=== PATIENT | male | born 1970 | race Caucasian/White ===

== ENCOUNTER → 2021-03-26 04:35 | Outpatient (CLI) | payer BC, SELFPAY ==
[2021-03-26 18:47] LABS: SARS-CoV-2 RNA PCR Negative
== END ==
PROVIDERS: Visit Provider Internal Medicine Gastroenterology
DX: Z01.812 Encounter for preprocedural laboratory examination (principal); Z20.822 Contact with and (suspected) exposure to COVID-19
CPT/HCPCS: C9803; U0003; U0005

== ENCOUNTER 2021-03-29 01:04 | Day surgery (SDC) | payer BC, SELFPAY ==
[2021-03-22 11:22] VITALS: BMI 32.0
[2021-03-29 10:15] VITALS: BP 120/95; PULSE 84; RESP 18; TEMP 35.8; O2SAT 99
[2021-03-29] MEDS: LACTATED RINGERS 1,000 ML 150 ML IV CONT (10:17)
--- NOTE | 2021-03-29 10:28 | WPDHPUPDATE1 ---
History and Physical Update Update Date/Time: 03/29/21 10:28 History and Physical has been reviewed, including an updated exam of the patient. There are NO changes in the patient's condition. Risks, benefits, and alternatives have been discussed and questions answered. Patient agrees to proceed with procedure.
--- NOTE | 2021-03-29 10:35 | WPDANESEPPF ---
Anes - Initial Pre Proc Eval Procedure: Operation Date: 03/29/21 11:00 Proposed Procedures p Esophagogastroduodenoscopy & Screening Colonoscopy - South Flowers MD Date/Time: 03/29/21 10:35 Surgeon: South Flowers MD Pre Op Diagnosis: neoplasm screening, dysphagia Patient Data Age: 50 Gender: M Height: 1.83 m Weight: 101.3 kg Last Vital Signs Temp 96.5 F L 03/29/21 10:15 Pulse 84 03/29/21 10:15 Resp 18 03/29/21 10:15 BP 120/95 H 03/29/21 10:15 Pulse Ox 99 03/29/21 10:15 Allergies Allergy/AdvReac Type Severity Reaction Status Date / Time amoxicillin Allergy Other Verified 03/29/21 10:14 Home Medications Medication Instructions Recorded Confirmed Type No Home Medications 03/15/21 03/22/21 History Patient hx anesthesia problems: none Family hx anesthesia problems: none [facility] Past Medical History Medical History (Updated 03/29/21 @ 10:32 by Garrett Guerrero MD) Dysphagia Social History Social History (Updated 03/15/21 @ 13:17 by Rhianna Aguiar CMA) Smoking status: Never smoker Alcohol intake: never Alcohol use details: rarely Substance use: never Living arrangements: with family Spiritual care concerns: No Anes - Eval Final PreProcedure Day of Procedure 03/29/21 10:35 Patient weight: obese Heart: regular rate and rhythm Lungs: clear to auscultation Airway: Mallampati scale class II Neurological: alert and oriented Last oral intake: >/= 8 hours ASA classification: II Emergent: no Anesthetic plan: proceed Anesthesia type and monitoring: general GIVS and standard monitoring Informed Consent: The patient's anesthetic plan and its attendant risks and benefits were discussed with the patient/family/POA. Questions were solicited and answers provided to the satisfaction of the patient/family/POA.
[2021-03-29] MEDS: SIMETHICONE ORAL SUSPENSION 20 MG/0.3 ML 30 ML BOTTLE 0.6 ML IRRIGATION (11:22)
[2021-03-29 11:41] VITALS: BP 89/55; PULSE 76; RESP 18; O2SAT 97
[2021-03-29 11:51] VITALS: BP 101/69; PULSE 77; RESP 18; O2SAT 96
[2021-03-29 11:59] VITALS: BP 107/72; PULSE 72; RESP 18; O2SAT 96
== END 2021-03-29 12:16 | disposition home or self-care (01) ==
PROVIDERS: PCP Emergency Medicine; Visit Provider Internal Medicine Gastroenterology
PROC: 0DJ08ZZ Inspection of Upper Intestinal Tract, Via Natural or Artificial Opening Endoscopic (ICD-10-PCS; CPT 43235; principal; 2021-03-29 11:00)
DX: Z12.11 Encounter for screening for malignant neoplasm of colon (principal); K64.8 Other hemorrhoids; K57.30 Diverticulosis of large intestine without perforation or abscess without bleeding; E66.9 Obesity, unspecified; Z68.30 Body mass index [BMI] 30.0-30.9, adult; R13.10 Dysphagia, unspecified
CPT/HCPCS: 43450; 45378; C9803; J2704; J7120; U0003; U0005